=== PATIENT | female | born 1990 | race Caucasian/White ===

== ENCOUNTER 2022-07-30 21:58 | Emergency (ER) | payer SELFPAY ==
[~2022-07-30] VITALS: Ht 162.6 cm; Wt 81.6 kg
[2022-07-30 22:45] VITALS: BP 132/83
--- NOTE | 2022-07-30 22:48 | NUR ---
TO LOBBY A/W BED AMBULATORY
[2022-07-30 23:07] VITALS: BP 132/83
--- NOTE | 2022-07-30 23:09 | NUR ---
REDNESS , SWELLING, PAIN ON HER LEFT BUTTOCK FOR 3 DAYS
--- NOTE | 2022-07-30 23:29 | NUR ---
Dr. Marks examining patient.
--- NOTE | 2022-07-30 23:55 | NUR ---
Dr. Marks examining patient.
[2022-07-30] MEDS ORDERED: IBUP-2213 PO (23:59)
[2022-07-30] MEDS ORDERED: SULF-59 PO (23:59)
--- NOTE | 2022-07-31 01:00 | NUR ---
Patient discharged with v/s stable. Written and verbal after care instructions given and explained. Patient verbalized understanding. Ambulatory with steady gait. All questions addressed prior to discharge. Advised to follow up with PMD.
== END 2022-07-31 01:00 | disposition home or self-care (01) ==
LOC: MED 21:58
DX: L03.317 Cellulitis of buttock (principal); Z79.899 Other long term (current) drug therapy
CPT/HCPCS: 99283; 99284

== ENCOUNTER 2023-05-08 11:14 | Inpatient (IN) | payer MEDICAID ==
[~2023-05-08] VITALS: Ht 162.6 cm; Wt 98.4 kg
[~2023-05-08 11:14] MED LIST: IBUP-2213 PO; SULF-59 PO
[2023-05-08 11:24] VITALS: BP 100/77; PULSE 85; RESP 15; TEMP 97.8; O2SAT 100
[2023-05-08] MEDS ORDERED: AMPICILLIN/SULBACTAM 1.5 GM in NACL 0.9% 50 ML IV ONE (11:50)
[2023-05-08] MEDS ORDERED: MORPHINE SULFATE 4 MG/ML SYR IVP ONE ×2 (11:50→15:10)
[2023-05-08] MEDS ORDERED: AMPICILLIN/SULBACTAM 1.5 GM VIAL ONE (12:27)
[2023-05-08 12:31] LABS: BASOPHILS # (AUTO) 0.1 K/uL (0.00-0.22); BASOPHILS % (AUTO) 0.4 % (0.0-2.0); HEMATOCRIT 38.2 % (36-48); HEMOGLOBIN 12.7 g/dL (12.0-16.0); LYMPHOCYTES # (AUTO) 2.1 K/uL (2.5-16.5); LYMPHOCYTES % (AUTO) 8.5 % (20.5-51.1); MEAN CORPUSCULAR HEMOGLOBIN 30 pg (27-31); MEAN CORPUSCULAR HGB CONC 33 g/dL (33-37); MEAN CORPUSCULAR VOLUME 88.6 fL (80-94); MONOCYTES # (AUTO) 1.4 K/uL (0.8-1.0); MONOCYTES % (AUTO) 5.7 % (1.7-9.3); NEUTROPHILS # (AUTO) 21.6 K/uL (1.8-7.7); NEUTROPHILS % (AUTO) 85.4 % (42.2-75.2); PLATELET COUNT (AUTO) 383 K/uL (140-450); RED BLOOD CELL COUNT(AUTO) 4.31 MIL/uL (4.20-5.40); RED CELL DISTRIBUTION WIDTH 14.2 % (11.6-13.7)
[2023-05-08 12:35] LABS: WHITE BLOOD COUNT (AUTO) 25.3 K/uL (4.8-10.8)
[2023-05-08 12:43] LABS: ANION GAP 10.1 (8-16); CALCIUM 8.5 mg/dL (8.5-10.1); CARBON DIOXIDE 31.2 mmol/L (21-32); CREATININE 0.6 mg/dL (0.6-1.3); POTASSIUM 4.3 mmol/L (3.5-5.1)
[2023-05-08 14:36] LABS: APPEARANCE,URINE CLEAR (CLEAR); BILIRUBIN,URINE 1+ (NEGATIVE); BLOOD, URINE TRACE-I (NEGATIVE); COLOR,URINE YELLOW (YELLOW); LEUKOCYTE ESTERASE ,URINE TRACE (NEGATIVE); NITRITE, URINE POSITIVE (NEGATIVE); PROTEIN,URINE 1+ (NEGATIVE); UGLUCOSE NEGATIVE (NEGATIVE)
[2023-05-08 14:51] LABS: RBC,URINE 0-5 /HPF (0-5)
[2023-05-08 14:52] LABS: BACTERIA,URINE 1+ /HPF (None Seen); MUCUS,URINE 1+ /LPF (None Seen); SQUAMOUS EPITHELIAL CELL,UR 4-10 (MOD) /LPF (0-3 (FEW)); WBC,URINE 0-5 /HPF (0-5)
[2023-05-08 14:53] LABS: ICTOTEST POSITIVE (NEGATIVE)
[2023-05-08] MEDS ORDERED: VANCOMYCIN PER PHARMACY MC PRN ×3 (15:10→16:05)
[2023-05-08] MEDS ORDERED: VANCOMYCIN 1GM/DEXT 5% PREMIX 200 ML IV ONE (15:10)
[2023-05-08] MEDS ORDERED: ALBUTEROL 0.083% 2.5 MG/3 ML NEBU INH PRN (15:50)
[2023-05-08] MEDS ORDERED: ONDANSETRON 4 MG/2 ML VIAL IVP PRN (15:50)
[2023-05-08] MEDS ORDERED: VANCOMYCIN 1,000 MG VIAL ONE (16:07)
[2023-05-08] MEDS: NACL 0.9% 1,000 ML IV SCH ×2 (16:20→21:48)
[2023-05-08] MEDS: VANCOMYCIN 1.25GM PREMIX 250 ML IV SCH (16:33)
[2023-05-08 20:55] VITALS: BP 122/70; PULSE 77; RESP 18; TEMP 98.6; O2SAT 96
[2023-05-08] MEDS ORDERED: PIPERACILLIN/TAZOBACTAM 3.375 GM in DEXTROSE 5% 50 ML IV SCH (21:00)
[2023-05-08] MEDS ORDERED: PIPERACILLIN/TAZOBACTAM 3.375 GM VIAL IV ONE (21:16)
[2023-05-08] MEDS: PIPERACILLIN/TAZOBACTAM 3.375 GM in DEXTROSE 5% 50 ML IV SCH (21:49)
[2023-05-08 22:45] LABS: AMPHETAMINE, URINE POSITIVE ng/ml (NEG <=1000); BARBITURATE, URINE NEGATIVE ng/ml (NEG <=200); BENZODIAZEPINE, URINE NEGATIVE ng/mL (NEG <=200); CANNABINOID, URINE NEGATIVE ng/mL (NEG <=50); COCAINE, URINE NEGATIVE ng/mL (NEG <=300); OPIATE, URINE POSITIVE ng/mL (NEG <=2000); PHENCYCLIDINE SCREEN,URINE NEGATIVE ng/mL (NEG <=25)
[2023-05-09 01:25] VITALS: PULSE 77; RESP 17; O2SAT 97
[2023-05-09] MEDS: VANCOMYCIN 1.25GM PREMIX 250 ML IV SCH ×3 (01:33→16:13)
[2023-05-09 04:00] VITALS: BP 110/60; PULSE 70; RESP 18; TEMP 98.8; O2SAT 96
[2023-05-09] MEDS ORDERED: PIPERACILLIN/TAZOBACTAM 3.375 GM VIAL IV ONE (05:59)
[2023-05-09] MEDS: PIPERACILLIN/TAZOBACTAM 3.375 GM in DEXTROSE 5% 50 ML IV SCH ×3 (06:14→20:32)
[2023-05-09] MEDS: HYDROcodone/APAP 10/325 MG 1 TAB TAB PO PRN (06:15)
[2023-05-09 07:10] VITALS: O2SAT 100
[2023-05-09 08:00] VITALS: BP 128/77; PULSE 68; PULSE 82; RESP 18; RESP 20; TEMP 98.6; O2SAT 100; O2SAT 99
[2023-05-09 08:11] LABS: BASOPHILS % (AUTO) 0.2 % (0.0-2.0); HEMATOCRIT 37.5 % (36-48); HEMOGLOBIN 12.3 g/dL (12.0-16.0); LYMPHOCYTES # (AUTO) 1.7 K/uL (2.5-16.5); LYMPHOCYTES % (AUTO) 7.7 % (20.5-51.1); MEAN CORPUSCULAR HEMOGLOBIN 29 pg (27-31); MEAN CORPUSCULAR HGB CONC 33 g/dL (33-37); MEAN CORPUSCULAR VOLUME 88.7 fL (80-94); MONOCYTES # (AUTO) 1.4 K/uL (0.8-1.0); MONOCYTES % (AUTO) 6.6 % (1.7-9.3); NEUTROPHILS # (AUTO) 18.3 K/uL (1.8-7.7); NEUTROPHILS % (AUTO) 85.5 % (42.2-75.2); PLATELET COUNT (AUTO) 316 K/uL (140-450); RED BLOOD CELL COUNT(AUTO) 4.22 MIL/uL (4.20-5.40); RED CELL DISTRIBUTION WIDTH 14.2 % (11.6-13.7); WHITE BLOOD COUNT (AUTO) 21.4 K/uL (4.8-10.8)
[2023-05-09 08:24] LABS: ANION GAP 7.7 (8-16); CALCIUM 7.8 mg/dL (8.5-10.1); CARBON DIOXIDE 28.6 mmol/L (21-32); CREATININE 0.7 mg/dL (0.6-1.3); POTASSIUM 3.3 mmol/L (3.5-5.1)
[2023-05-09 08:31] LABS: CHOL/HDL RATIO 2.3 (1-4.5)
[2023-05-09] MEDS ORDERED: POTASSIUM CHLORIDE 10 MEQ TABER PO SCH (08:56)
[2023-05-09] MEDS: NACL 0.9% 1,000 ML IV SCH ×2 (13:07→22:00)
[2023-05-09 16:00] VITALS: BP 118/72; PULSE 85; RESP 18; TEMP 98; O2SAT 98
[2023-05-09 20:00] VITALS: BP 118/78; PULSE 72; PULSE 95; RESP 18; TEMP 98.6; O2SAT 97; O2SAT 99
[2023-05-10] MEDS: VANCOMYCIN 1.25GM PREMIX 250 ML IV SCH ×3 (01:35→17:32)
[2023-05-10 04:00] VITALS: BP 118/78; PULSE 95; RESP 17; TEMP 98.5; O2SAT 98
[2023-05-10] MEDS: PIPERACILLIN/TAZOBACTAM 3.375 GM in DEXTROSE 5% 50 ML IV SCH (04:37)
[2023-05-10 07:10] LABS: BASOPHILS % (AUTO) 0.2 % (0.0-2.0); HEMATOCRIT 36.9 % (36-48); HEMOGLOBIN 12.2 g/dL (12.0-16.0); LYMPHOCYTES # (AUTO) 1.6 K/uL (2.5-16.5); LYMPHOCYTES % (AUTO) 7.2 % (20.5-51.1); MEAN CORPUSCULAR HEMOGLOBIN 29 pg (27-31); MEAN CORPUSCULAR HGB CONC 33 g/dL (33-37); MEAN CORPUSCULAR VOLUME 87.8 fL (80-94); MONOCYTES # (AUTO) 1.4 K/uL (0.8-1.0); MONOCYTES % (AUTO) 6.2 % (1.7-9.3); NEUTROPHILS # (AUTO) 19.3 K/uL (1.8-7.7); NEUTROPHILS % (AUTO) 86.4 % (42.2-75.2); PLATELET COUNT (AUTO) 340 K/uL (140-450); RED CELL DISTRIBUTION WIDTH 14.2 % (11.6-13.7); WHITE BLOOD COUNT (AUTO) 22.4 K/uL (4.8-10.8)
[2023-05-10 07:26] LABS: ANION GAP 11.4 (8-16); CALCIUM 8.4 mg/dL (8.5-10.1); CARBON DIOXIDE 28.1 mmol/L (21-32); CREATININE 0.6 mg/dL (0.6-1.3); POTASSIUM 3.5 mmol/L (3.5-5.1)
[2023-05-10 08:00] VITALS: PULSE 72; RESP 18; O2SAT 99
[2023-05-10] MEDS: NACL 0.9% 1,000 ML IV SCH ×3 (11:27→23:21)
[2023-05-10 12:00] VITALS: BP 124/79; PULSE 83; RESP 17; TEMP 97.9; O2SAT 97
[2023-05-10] MEDS ORDERED: METOCLOPRAMIDE 10 MG/2 ML INJ VIAL ONE (13:00)
[2023-05-10] MEDS ORDERED: PROPOFOL 200 MG/20 ML VIAL IV ONE ×3 (13:00→14:21)
[2023-05-10] MEDS ORDERED: SUCCINYLCHOLINE CHLORIDE 200 MG/10 ML VIAL IVP ONE ×2 (13:00→13:20)
[2023-05-10] MEDS ORDERED: HYDROmorphone PFS 2 MG/ML SYR ONE ×2 (13:00→13:16)
[2023-05-10] MEDS ORDERED: MIDAZOLAM 2 MG/2 ML VIAL ONE ×2 (13:16→14:16)
[2023-05-10] MEDS ORDERED: BUPIVACAINE-MPF 0.25% 30 ML VIAL INJ ONE (13:17)
[2023-05-10] MEDS ORDERED: LIDOCAINE/EPI MPF 1%1:200000 30 ML VIAL INJ ONE (13:17)
[2023-05-10] MEDS ORDERED: ROCURONIUM 50 MG/5 ML VIAL IV ONE (13:18)
[2023-05-10] MEDS ORDERED: ONDANSETRON 4 MG/2 ML VIAL IVP PRN (14:05)
[2023-05-10] MEDS ORDERED: HYDROmorphone 1 MG/ML AMP IVP PRN (14:05)
[2023-05-10] MEDS ORDERED: NACL 0.9% 1,000 ML IV SCH (14:05)
[2023-05-10] MEDS ORDERED: fentaNYL citrate 0.05 MG/ML VIAL ONE ×2 (14:17→15:04)
[2023-05-10] MEDS ORDERED: ONDANSETRON 4 MG/2 ML VIAL ONE (15:30)
[2023-05-10 20:00] VITALS: BP 122/66; PULSE 77; RESP 16; TEMP 98; O2SAT 98
[2023-05-10 20:43] VITALS: O2SAT 98
[2023-05-10] MEDS: HYDROcodone/APAP 10/325 MG 1 TAB TAB PO PRN (23:21)
[2023-05-11] VITALS (7 sets, daily range): BP systolic 114–122; BP diastolic 68–78; PULSE 72–88; RESP 16–20; TEMP 97.5–98.8; O2SAT 96–100
[2023-05-11] MEDS: VANCOMYCIN 1.25GM PREMIX 250 ML IV SCH ×3 (00:01→17:47)
[2023-05-11] MEDS ORDERED: PIPERACILLIN/TAZOBACTAM 3.375 GM VIAL IV ONE (04:00)
[2023-05-11] MEDS: PIPERACILLIN/TAZOBACTAM 3.375 GM in DEXTROSE 5% 50 ML IV SCH ×3 (04:21→20:40)
[2023-05-11 06:07] LABS: HEMOGLOBIN A1C 5.5 % (4.8-5.6); HIV 1/0/2 ABS, QUAL Non Reactive (Non Reactive)
[2023-05-11 07:17] LABS: BASOPHILS % (AUTO) 0.2 % (0.0-2.0); HEMATOCRIT 34.8 % (36-48); HEMOGLOBIN 11.5 g/dL (12.0-16.0); LYMPHOCYTES # (AUTO) 1.7 K/uL (2.5-16.5); LYMPHOCYTES % (AUTO) 10.4 % (20.5-51.1); MEAN CORPUSCULAR HEMOGLOBIN 29 pg (27-31); MEAN CORPUSCULAR HGB CONC 33 g/dL (33-37); MEAN CORPUSCULAR VOLUME 87.6 fL (80-94); MONOCYTES % (AUTO) 6.2 % (1.7-9.3); NEUTROPHILS # (AUTO) 13.9 K/uL (1.8-7.7); NEUTROPHILS % (AUTO) 83.2 % (42.2-75.2); PLATELET COUNT (AUTO) 326 K/uL (140-450); RED BLOOD CELL COUNT(AUTO) 3.98 MIL/uL (4.20-5.40); RED CELL DISTRIBUTION WIDTH 14.2 % (11.6-13.7); WHITE BLOOD COUNT (AUTO) 16.7 K/uL (4.8-10.8)
[2023-05-11 07:19] LABS: ANION GAP 10.7 (8-16); CREATININE 0.5 mg/dL (0.6-1.3); POTASSIUM 3.7 mmol/L (3.5-5.1)
[2023-05-11] MEDS: NACL 0.9% 1,000 ML IV SCH (13:48)
[2023-05-11] MEDS: HYDROcodone/APAP 10/325 MG 1 TAB TAB PO PRN (22:37)
[2023-05-12] MEDS: NACL 0.9% 1,000 ML IV SCH
[2023-05-12] MEDS: VANCOMYCIN 1.25GM PREMIX 250 ML IV SCH ×2 (00:47→08:31)
[2023-05-12 04:00] VITALS: BP 109/51; PULSE 69; RESP 18; TEMP 97.8; O2SAT 96
[2023-05-12] MEDS: PIPERACILLIN/TAZOBACTAM 3.375 GM in DEXTROSE 5% 50 ML IV SCH (04:10)
[2023-05-12 07:21] LABS: ANION GAP 10.9 (8-16); CALCIUM 8.1 mg/dL (8.5-10.1); CARBON DIOXIDE 28.6 mmol/L (21-32); CREATININE 0.6 mg/dL (0.6-1.3); POTASSIUM 3.5 mmol/L (3.5-5.1)
[2023-05-12 07:40] LABS: BASOPHILS # (AUTO) 0.1 K/uL (0.00-0.22); BASOPHILS % (AUTO) 0.5 % (0.0-2.0); HEMATOCRIT 34.8 % (36-48); HEMOGLOBIN 11.6 g/dL (12.0-16.0); LYMPHOCYTES # (AUTO) 1.9 K/uL (2.5-16.5); LYMPHOCYTES % (AUTO) 16.6 % (20.5-51.1); MEAN CORPUSCULAR HEMOGLOBIN 29 pg (27-31); MEAN CORPUSCULAR HGB CONC 33 g/dL (33-37); MEAN CORPUSCULAR VOLUME 87.6 fL (80-94); MONOCYTES # (AUTO) 0.8 K/uL (0.8-1.0); MONOCYTES % (AUTO) 6.7 % (1.7-9.3); NEUTROPHILS # (AUTO) 8.6 K/uL (1.8-7.7); NEUTROPHILS % (AUTO) 76.2 % (42.2-75.2); PLATELET COUNT (AUTO) 373 K/uL (140-450); RED BLOOD CELL COUNT(AUTO) 3.98 MIL/uL (4.20-5.40); RED CELL DISTRIBUTION WIDTH 13.9 % (11.6-13.7); WHITE BLOOD COUNT (AUTO) 11.3 K/uL (4.8-10.8)
[2023-05-12 08:00] VITALS: BP 106/63; PULSE 72; PULSE 81; RESP 18; TEMP 98.1; O2SAT 98
[2023-05-12 14:32] VITALS: BP 116/71; PULSE 74; RESP 18; TEMP 97.1
[2023-05-12 16:00] VITALS: BP 110/71; PULSE 76; RESP 18; TEMP 98; O2SAT 98
== END 2023-05-12 16:50 | disposition home or self-care (01) | DRG 710 ==
LOC: MED 11:14 → MMU 15:55 → MTU 19:01
PROVIDERS: ADMIT Internal Medicine; ATTEND Internal Medicine
PROC: 0J990ZZ Drainage of Buttock Subcutaneous Tissue and Fascia, Open Approach (ICD-10-PCS; 2023-05-10)
PROC: 0J9M0ZZ Drainage of Left Upper Leg Subcutaneous Tissue and Fascia, Open Approach (ICD-10-PCS; 2023-05-10)
PROC: 0J9L0ZZ Drainage of Right Upper Leg Subcutaneous Tissue and Fascia, Open Approach (ICD-10-PCS; 2023-05-10)
PROC: 0J980ZZ Drainage of Abdomen Subcutaneous Tissue and Fascia, Open Approach (ICD-10-PCS; 2023-05-10)
PROC: 0J970ZZ Drainage of Back Subcutaneous Tissue and Fascia, Open Approach (ICD-10-PCS; principal; 2023-05-10 12:30)
DX: A41.9 Sepsis, unspecified organism (principal); L02.211 Cutaneous abscess of abdominal wall; D64.9 Anemia, unspecified; L02.31 Cutaneous abscess of buttock; L02.415 Cutaneous abscess of right lower limb; L02.416 Cutaneous abscess of left lower limb; F12.90 Cannabis use, unspecified, uncomplicated; L03.818 Cellulitis of other sites; L02.212 Cutaneous abscess of back [any part, except buttock and flank]; E83.52 Hypercalcemia; E66.9 Obesity, unspecified; Z68.37 Body mass index [BMI] 37.0-37.9, adult
CPT/HCPCS: 36415; 72132; 80048; 80202; 80305; 81001; 83036; 83605; 85025; 85651; 86140; 86702; 87040; 87070; 87075; 87081; 87186; 87205; 96365; 96375; 96376; 99285; J0295; J0330; J1170; J1644; J2001; J2250; J2270; J2405; J2543; J2704; J2765; J3010; J3370; J3372; J3490; J7060; Q9967